=== PATIENT | male | born 1955 | race American Indian/Alaskan Native ===

== ENCOUNTER 2019-11-19 23:23 | Emergency (ER) | payer MEDICARE ==
[2019-11-20 00:26] VITALS: BP 135/71
[2019-11-20] MEDS ORDERED: IBUPROFEN 600 MG TAB PO ONE (04:09)
[2019-11-20] MEDS ORDERED: ACETAMINOPHEN 500 MG TAB PO ONE (04:09)
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
== END 2019-11-20 06:15 | disposition home or self-care (01) ==
LOC: ED 23:23
DX: S30.0XXA Contusion of lower back and pelvis, initial encounter (principal); M62.830 Muscle spasm of back; I10 Essential (primary) hypertension; F17.200 Nicotine dependence, unspecified, uncomplicated; F12.10 Cannabis abuse, uncomplicated; F14.10 Cocaine abuse, uncomplicated; Z79.899 Other long term (current) drug therapy; W07.XXXA Fall from chair, initial encounter; Y93.89 Activity, other specified; Y92.009 Unspecified place in unspecified non-institutional (private) residence as the place of occurrence of the external cause; Y99.8 Other external cause status
CPT/HCPCS: 72100